=== PATIENT | male | born 1955 ===

== ENCOUNTER → 2021-12-09 | Outpatient (CLI) | payer BC ==
--- NOTE | 2021-12-09 20:08 | RAD ---
STUDY: US ABDOMEN OR LOWER BACK LIMITED INDICATION: Elevated liver function tests. COMPARISON: None. TECHNIQUE: Limited abdominal ultrasound targeted at the right upper quadrant. Findings: Increased hepatic parenchymal echogenicity. The liver measures 17.2 cm longitudinal. Poorly visualized pancreas. Unremarkable IVC at the liver. Nonaneurysmal abdominal aorta. Patent main portal vein with hepatopeda l flow. Normal gallbladder wall thickness at 0.2 cm. Small mobile gallstones. No sonographic Rock's sign. The right kidney measures 11.6 cm longitudinal. Normal cortical thickness and echogenicity. No hydron ephrosis. Normal common duct caliber at 0.2 cm. Impression: 1. Small mobile gallstones without any findings to indicate acute cholecystitis. Nondilated common d uct. 2. The liver exhibits increased parenchymal echogenicity most frequently on account of hepatic steat osis. 3. Incompletely assessed pancreas which is poorly visualized. Electronically signed by: EDWIN KINCAID MD (12/09/2021 8:05 PM) [facility]
== END ==
LOC: US 10:00
PROVIDERS: ATTEND Family Medicine
DX: K80.80 Other cholelithiasis without obstruction (principal); K76.89 Other specified diseases of liver; R79.89 Other specified abnormal findings of blood chemistry
CPT/HCPCS: 76705